=== PATIENT | female | born 1990 ===

== ENCOUNTER 2024-02-16 07:12 | Inpatient (IN) | payer BC ==
[2024-02-16] MEDS ORDERED: NALBUPHINE 10 MG/ML (10 ML MDV) ONE (13:54)
[2024-02-16] MEDS ORDERED: KETOROLAC 15 MG/ML 1 ML VIAL ONE (19:19)
[2024-02-16] MEDS ORDERED: diphenhydrAMINE 50 MG/ML 1 ML VIAL ONE (22:24)
[2024-02-17] MEDS ORDERED: ACETAMINOPHEN TAB 500 MG TAB ONE ×5 (00:16→23:51)
[2024-02-17] MEDS ORDERED: KETOROLAC 15 MG/ML 1 ML VIAL ONE (02:28)
[2024-02-17] MEDS ORDERED: SENNOSIDES-DOCUSATE SODIUM 1 EACH TAB PO ONE ×2 (08:20→20:05)
[2024-02-17] MEDS ORDERED: IBUPROFEN 600 MG TAB PO ONE ×3 (08:20→21:18)
[2024-02-18] MEDS ORDERED: IBUPROFEN 600 MG TAB PO ONE ×2 (04:21→09:36)
[2024-02-18] MEDS ORDERED: ACETAMINOPHEN TAB 500 MG TAB ONE ×2 (06:03→11:43)
== END 2024-02-18 13:30 | disposition home or self-care (01) | DRG 788 ==
LOC: UNDOADMIN 07:12 → 4FBP 07:12 → DISRECOVER 07:12 → UNDODISIN 02-18 13:30
PROVIDERS: ADMIT Obstetrics & Gynecology; ATTEND Obstetrics & Gynecology
PROC: 10D00Z1 Extraction of Products of Conception, Low, Open Approach (ICD-10-PCS; principal; 2024-02-16)
DX: O34.211 Maternal care for low transverse scar from previous cesarean delivery (principal); O34.593 Maternal care for other abnormalities of gravid uterus, third trimester; O99.73 Diseases of the skin and subcutaneous tissue complicating the puerperium; L29.9 Pruritus, unspecified; Z79.82 Long term (current) use of aspirin; Z79.899 Other long term (current) drug therapy; Z3A.39 39 weeks gestation of pregnancy; Z37.0 Single live birth